=== PATIENT | male | born 1960 | race Caucasian/White ===

== ENCOUNTER 2025-10-08 06:37 | Inpatient (IN) ==
[2025-10-08] MEDS: ACETAMINOPHEN 1,000 MG/100 ML BAG IV ONE (07:27)
[2025-10-08] MEDS: SODIUM CHLORIDE IV ONE (07:27)
[2025-10-08 07:45] LABS: Anion Gap 14.0 (8.0-16.0); Blood Urea Nitrogen 40 mg/dL (8-23); Calcium 9.3 mg/dL (8.6-10.4); Carbon Dioxide 19 mmol/L (22-30); Chloride 100 mmol/L (96-108); Glucose 136 mg/dL (70-105); Potassium 4.5 mmol/L (3.3-5.1); Sodium 133 mmol/L (133-145)
[2025-10-08 07:48] LABS: Basophils # (Auto) 0.02 K/mcL (0.00-0.30); Basophils % (Auto) 0.2 % (0.0-2.0); Eosinophils # (Auto) 0.07 K/mcL (0.00-0.70); Eosinophils % (Auto) 0.6 % (0.0-7.0); Hematocrit 34.3 % (40.1-51.0); Hemoglobin 11.3 g/dL (13.7-17.5); Lymphocytes # (Auto) 0.85 K/mcL (1.50-4.80); Lymphocytes % (Auto) 7.2 % (15.5-49.0); Mean Corpuscular HGB Conc 32.9 g/dL (31.0-36.0); Monocytes # (Auto) 1.00 K/mcL (0.10-0.90); Monocytes % (Auto) 8.5 % (1.0-12.0); Neutrophils % (Auto) 83.3 % (38.0-78.0); Platelet Count 255 K/mcL (140-440); RBC 3.52 M/mcL (4.63-6.08); WBC 11.8 K/mcL (4.5-11.0)
[2025-10-08] MEDS: CEFEPIME 2 GM VIAL IV ONE (07:48)
[2025-10-08] MEDS: AZITHROMYCIN 500 MG in DEXTROSE 5% IN WATER 250 ML IV ONE (07:53)
[2025-10-08 08:27] LABS: CRP,High Sensitivity 244.0 mg/L (1.0-3.0)
[2025-10-08] MEDS: DOXYCYCLINE 100 MG in DEXTROSE 5% IN WATER 100 ML IV SCH (09:29)
[2025-10-08] MEDS: LACTATED RINGERS 1,000 ML IV SCH (11:12)
[2025-10-08] MEDS ORDERED: IPRATROPIUM/ALBUTEROL 3 ML AMPUL.NEB NEB PRN (13:39)
[2025-10-08] MEDS ORDERED: ACETAMINOPHEN 1,000 MG/100 ML BAG IV PRN (13:39)
[2025-10-08] MEDS ORDERED: SENNOSIDES 1 TABLET PO PRN (13:39)
[2025-10-08] MEDS: LEVOFLOXACIN 750 MG/150 ML BAG IV SCH (14:24)
[2025-10-08] MEDS: 0.9 % SODIUM CHLORIDE 10 ML SYRINGE IV SCH (14:28)
[2025-10-08] MEDS: AMPICILLIN SODIUM/SULBACTAM NA 3 GM in 0.9 % SODIUM CHLORIDE 100 ML IV SCH (16:30)
[2025-10-08] MEDS: ONDANSETRON 4 MG/2 ML VIAL IV PRN (19:40)
[2025-10-08] MEDS: HEPARIN 5,000 UNIT/ML VIAL SQ SCH (20:07)
[2025-10-09 06:55] LABS: Basophils # (Auto) 0.03 K/mcL (0.00-0.30); Basophils % (Auto) 0.4 % (0.0-2.0); Eosinophils # (Auto) 0.09 K/mcL (0.00-0.70); Eosinophils % (Auto) 1.1 % (0.0-7.0); Hematocrit 31.7 % (40.1-51.0); Hemoglobin 10.5 g/dL (13.7-17.5); Lymphocytes # (Auto) 1.39 K/mcL (1.50-4.80); Lymphocytes % (Auto) 16.6 % (15.5-49.0); Mean Corpuscular HGB Conc 33.1 g/dL (31.0-36.0); Monocytes # (Auto) 1.09 K/mcL (0.10-0.90); Monocytes % (Auto) 13.1 % (1.0-12.0); Neutrophils % (Auto) 68.4 % (38.0-78.0); Platelet Count 266 K/mcL (140-440); RBC 3.25 M/mcL (4.63-6.08); WBC 8.4 K/mcL (4.5-11.0)
[2025-10-09 07:07] LABS: ALT/SGPT 25 U/L (<40); AST/SGOT 21 U/L (<40); Albumin 3.3 gm/dL (3.2-5.2); Albumin/Globulin Ratio 1.1 (1.0-2.3); Alkaline Phosphatase 91 U/L (39-117); Anion Gap 14.0 (8.0-16.0); Bilirubin,Direct < 0.2 mg/dL (0-0.3); Bilirubin,Total < 0.2 mg/dL (0.1-1.0); Blood Urea Nitrogen 36 mg/dL (8-23); Calcium 9.2 mg/dL (8.6-10.4); Carbon Dioxide 19 mmol/L (22-30); Chloride 103 mmol/L (96-108); Globulin 3.1 gm/dL (2.2-3.7); Glucose 102 mg/dL (70-105); Phosphorous 2.7 mg/dL (2.5-4.5); Potassium 4.3 mmol/L (3.3-5.1); Sodium 136 mmol/L (133-145); Triglycerides 228 mg/dL (<150); Uric Acid 5.6 mg/dL (2.5-8.0)
[2025-10-09] MEDS ORDERED: CEFEPIME 2 GM VIAL IV SCH (09:00)
[2025-10-10 06:45] LABS: Basophils # (Auto) 0.02 K/mcL (0.00-0.30); Basophils % (Auto) 0.3 % (0.0-2.0); Eosinophils # (Auto) 0.11 K/mcL (0.00-0.70); Eosinophils % (Auto) 1.4 % (0.0-7.0); Hematocrit 32.5 % (40.1-51.0); Hemoglobin 10.7 g/dL (13.7-17.5); Lymphocytes # (Auto) 2.02 K/mcL (1.50-4.80); Lymphocytes % (Auto) 25.7 % (15.5-49.0); Mean Corpuscular HGB Conc 32.9 g/dL (31.0-36.0); Monocytes # (Auto) 1.01 K/mcL (0.10-0.90); Monocytes % (Auto) 12.9 % (1.0-12.0); Neutrophils % (Auto) 59.4 % (38.0-78.0); Platelet Count 307 K/mcL (140-440); RBC 3.35 M/mcL (4.63-6.08); WBC 7.9 K/mcL (4.5-11.0)
[2025-10-10 06:55] LABS: ALT/SGPT 32 U/L (<40); AST/SGOT 25 U/L (<40); Albumin 3.5 gm/dL (3.2-5.2); Albumin/Globulin Ratio 1.1 (1.0-2.3); Alkaline Phosphatase 94 U/L (39-117); Anion Gap 13.0 (8.0-16.0); Bilirubin,Direct < 0.2 mg/dL (0-0.3); Bilirubin,Total < 0.2 mg/dL (0.1-1.0); Blood Urea Nitrogen 36 mg/dL (8-23); Calcium 9.4 mg/dL (8.6-10.4); Carbon Dioxide 21 mmol/L (22-30); Chloride 104 mmol/L (96-108); Globulin 3.2 gm/dL (2.2-3.7); Glucose 109 mg/dL (70-105); Phosphorous 2.6 mg/dL (2.5-4.5); Potassium 4.2 mmol/L (3.3-5.1); Sodium 138 mmol/L (133-145); Triglycerides 239 mg/dL (<150); Uric Acid 5.8 mg/dL (2.5-8.0)
[2025-10-10] MEDS: LEVOFLOXACIN 750 MG TABLET PO SCH (09:19)
[2025-10-10] MEDS: AMOXICILLIN/POTASSIUM CLAV 875 MG TABLET PO SCH (09:36)
[2025-10-10 13:31] VITALS: TEMP 98.1; O2SAT 99
[2025-10-12] MEDS ORDERED: LEVOFLOXACIN 750 MG TABLET PO SCH (09:00)
== END 2025-10-10 15:30 | disposition home or self-care (01) | DRG 871 ==
LOC: ED 06:37 → MEDSUR 13:33
PROVIDERS: ADMIT Student in an Organized Health Care Education/Training Program; ATTEND Student in an Organized Health Care Education/Training Program